=== PATIENT | male | born 1965 | race African-American/Black ===

== ENCOUNTER 2023-12-01 11:17 | Inpatient (IN) | payer OTHER ==
[2023-12-01 13:36] VITALS: BMI 23.6
[2023-12-01] MEDS ORDERED: LOPERAMIDE HCL 2 MG CAPSULE PO PRN (14:12)
[2023-12-01] MEDS ORDERED: guaiFENesin 600 MG TABLET.ER (FP) PO PRN (14:12)
[2023-12-01] MEDS ORDERED: NICOTINE POLACRILEX 2 MG LOZENGE BC PRN (14:12)
[2023-12-01] MEDS ORDERED: BENZONATATE 200 MG CAPSULE PO PRN (14:12)
[2023-12-01] MEDS ORDERED: NICOTINE POLACRILEX 2 MG GUM BUC PRN (14:12)
[2023-12-01] MEDS ORDERED: MAGNESIUM HYDROX 2400MG/30ML ORAL SUSPENSION 30 ML CUP PO PRN (14:12)
[2023-12-01] MEDS ORDERED: DOCUSATE SODIUM 100 MG CAPSULE (FP) PO PRN (14:12)
[2023-12-01] MEDS ORDERED: MAG HYDROX/AL HYDROX/SIMETH 30 ML UNIT-DOSE CUP PO PRN (14:12)
[2023-12-01] MEDS ORDERED: POLYETHYLENE GLYCOL (HEALTHYLAX) 3350 17 GM PACKET PO PRN (14:12)
[2023-12-01] MEDS ORDERED: BENZOCAINE/MENTHOL (CHLORASEPTIC ) LOZENGE MM PRN (14:12)
[2023-12-01] MEDS: BACITRACIN ZINC 15 GM TUBE TOPICAL OINTMENT TP SCH (16:38)
[2023-12-01 19:37] LABS: EPI CELLS >36 /uL (0-25.1); HYALINE CASTS 4 /uL (0-3.1); URINE APPEARANCE CLEAR; URINE BACTERIA 28 /uL (0-1359); URINE BILIRUBIN NEGATIVE (NEGATIVE); URINE COLOR YELLOW; URINE GLUCOSE (UA) NEGATIVE (NEGATIVE); URINE KETONE TRACE (NEGATIVE); URINE LEUK ESTERASE 2+ (NEGATIVE); URINE NITRITE NEGATIVE (NEGATIVE); URINE PROTEIN NEGATIVE (NEGATIVE); URINE RBC 25 /uL (0-23.9); URINE WBC 362 /uL (0-25.8)
[2023-12-01] MEDS ORDERED: BACITRACIN ZINC 15 GM TUBE TOPICAL OINTMENT TP SCH (22:00)
[2023-12-01] MEDS: MELATONIN 5 MG TABLETS PO SCH (22:32)
[2023-12-01] MEDS: THIAMINE 100 MG TABLET PO SCH (22:32)
[2023-12-01] MEDS: hydrOXYzine PAMOATE 25 MG CAPSULE (FP) PO PRN (22:32)
[2023-12-02] MEDS: PRENATAL VITAMINS W/ FOLIC ACID TABLET (FP) PO SCH (10:44)
[2023-12-02] MEDS: BACITRACIN ZINC 15 GM TUBE TOPICAL OINTMENT TP SCH (10:44)
[2023-12-02] MEDS ORDERED: BACITRACIN 0.9 GM PACKET ONE (11:22)
[2023-12-02 14:49] LABS: HEMATOCRIT 37.4 % (35.4-49); MCH 30.5 pg (25.7-33.7); MCHC 32.1 g/dl (32.0-35.9); MEAN CELL VOLUME 94.8 fl (80-96); MEAN PLT VOLUME 9.5 fl (7.5-11.1); PLATELET COUNT 236 10^3/uL (134-434); RBC 3.94 M/mm3 (4.00-5.60); RDW 14.4 % (11.9-15.9); WHITE BLOOD COUNT 7.9 K/mm3 (4.0-10.0)
[2023-12-02 15:01] LABS: POTASSIUM 4.2 mmol/L (3.5-5.1)
[2023-12-02 15:04] LABS: BLOOD UREA NITROGEN 15.6 mg/dL (7-18); CALCIUM 8.9 mg/dL (8.5-10.1)
[2023-12-02 15:05] LABS: ALBUMIN 3.3 g/dl (3.4-5.0)
[2023-12-02 15:08] LABS: CREATININE 0.8 mg/dL (0.55-1.3)
[2023-12-02 15:10] LABS: BILIRUBIN,TOTAL 0.4 mg/dL (0.2-1); TOT PROT 7.3 g/dl (6.4-8.2)
[2023-12-03] MEDS: IBUPROFEN 600 MG TABLET (FP) PO PRN (11:16)
[2023-12-04] MEDS: IBUPROFEN 400 MG TABLET (FP) PO PRN (10:14)
[2023-12-04] MEDS: TUBERCULIN PPD 5 TU/0.1ML SYRINGE (IN PATIENT USE ONLY) ID ONE (11:23)
[2023-12-04] MEDS: BACITRACIN 0.9 GM PACKET TP SCH (11:28)
[2023-12-04] MEDS: ACETAMINOPHEN 325 MG TABLET (FP) PO PRN (17:11)
[2023-12-05] MEDS: OLANZapine 10 MG TABLET PO SCH (11:47)
[2023-12-05] MEDS: DIVALPROEX SODIUM 250 MG TABLET E.C. PO SCH (12:10)
[2023-12-05] MEDS: OLANZapine 10 MG TABLET PO ONE (12:10)
[2023-12-06 06:45] VITALS: BP 146/76; PULSE 78; RESP 17; TEMP 97.1
[2023-12-06] MEDS ORDERED: NALOXONE (NYS OPIOID OVERDOSE PROGRAM) 4 MG/0.1 ML SPRAY NS PRN (11:45)
[2023-12-06] MEDS ORDERED: OLANZapine 10 MG TABLET PO SCH (22:00)
== END 2023-12-06 12:03 | disposition left against medical advice (07) | DRG 770 ==
LOC: YASAS 11:17 → Y3NR 14:30 → Y3W 12-02 09:47
PROVIDERS: ADMIT Allergy & Immunology; ATTEND Psychiatry & Neurology Pain Medicine
PROC: HZ42ZZZ Group Counseling for Substance Abuse Treatment, Cognitive-Behavioral (ICD-10-PCS; principal; 2023-12-01)
DX: F14.20 Cocaine dependence, uncomplicated (principal); F10.20 Alcohol dependence, uncomplicated; F12.20 Cannabis dependence, uncomplicated; F17.210 Nicotine dependence, cigarettes, uncomplicated; F31.81 Bipolar II disorder; F25.9 Schizoaffective disorder, unspecified; F19.24 Other psychoactive substance dependence with psychoactive substance-induced mood disorder; R26.89 Other abnormalities of gait and mobility; Z99.89 Dependence on other enabling machines and devices; Z59.02 Unsheltered homelessness; Z91.199 Patient's noncompliance with other medical treatment and regimen due to unspecified reason
CPT/HCPCS: 36415; 71045-TC-FY; 80053; 80305; 80307; 81003; 85027; 86780; 86803; 87811; 93005; 93010

== ENCOUNTER 2024-02-11 11:56 | Inpatient (IN) | payer OTHER ==
[2024-02-11 13:18] VITALS: BMI 22.6
[2024-02-11] MEDS ORDERED: NALOXONE (NARCAN) HCL 4 MG/0.1 ML SPRAY NS PRN (13:32)
[2024-02-11] MEDS ORDERED: IBUPROFEN 400 MG TABLET (FP) PO PRN (13:32)
[2024-02-11] MEDS ORDERED: IBUPROFEN 600 MG TABLET (FP) PO PRN (13:32)
[2024-02-11] MEDS ORDERED: BENZONATATE 200 MG CAPSULE PO PRN (13:32)
[2024-02-11] MEDS ORDERED: POLYETHYLENE GLYCOL (HEALTHYLAX) 3350 17 GM PACKET PO PRN (13:32)
[2024-02-11] MEDS ORDERED: hydrOXYzine PAMOATE 25 MG CAPSULE (FP) PO PRN (13:32)
[2024-02-11] MEDS ORDERED: LOPERAMIDE HCL 2 MG CAPSULE PO PRN (13:32)
[2024-02-11] MEDS ORDERED: MAGNESIUM HYDROX 2400MG/30ML ORAL SUSPENSION 30 ML CUP PO PRN (13:32)
[2024-02-11] MEDS ORDERED: guaiFENesin 600 MG TABLET.ER (FP) PO PRN (13:32)
[2024-02-11] MEDS ORDERED: BENZOCAINE/MENTHOL (CHLORASEPTIC ) LOZENGE MM PRN (13:32)
[2024-02-11] MEDS ORDERED: ACETAMINOPHEN 325 MG TABLET (FP) PO PRN (13:32)
[2024-02-11] MEDS: NICOTINE 14 MG/24 HOURS TOPICAL PATCH TD SCH (14:55)
[2024-02-11] MEDS: PRENATAL VITAMINS W/ FOLIC ACID TABLET (FP) PO SCH (14:56)
[2024-02-11] MEDS: DIVALPROEX SODIUM 500 MG TABLET E.C. PO SCH (22:22)
[2024-02-11] MEDS: OLANZapine 5 MG TABLET PO SCH (22:22)
[2024-02-11] MEDS: THIAMINE 100 MG TABLET PO SCH (22:22)
[2024-02-11] MEDS: MELATONIN 5 MG TABLETS PO SCH (22:22)
[2024-02-12 11:27] LABS: CHLORIDE 109 mmol/L (98-107); SODIUM 138 mmol/L (136-145)
[2024-02-12 11:34] LABS: HEMATOCRIT 38.7 % (35.4-49); HEMOGLOBIN 12.3 GM/dL (11.7-16.9); MCH 29.9 pg (25.7-33.7); MCHC 31.8 g/dl (32.0-35.9); MEAN CELL VOLUME 93.9 fl (80-96); MEAN PLT VOLUME 8.9 fl (7.5-11.1); PLATELET COUNT 185 10^3/uL (134-434); RBC 4.12 M/mm3 (4.00-5.60); RDW 13.4 % (11.9-15.9); WHITE BLOOD COUNT 7.7 K/mm3 (4.0-10.0)
[2024-02-12 11:35] LABS: ALBUMIN 3.2 g/dl (3.4-5.0); ANION GAP 5 mmol/L (4-13); BLOOD UREA NITROGEN 11.3 mg/dL (7-18); CALCIUM 8.8 mg/dL (8.5-10.1); CO2 24 mmol/L (21-32); GLUCOSE,RANDOM 92 mg/dL (74-106); SGOT/AST 22 U/L (15-37); SGPT/ALT 34 U/L (13-61)
[2024-02-12 11:38] LABS: ALK PHOS 128 U/L (45-117); BILIRUBIN,TOTAL 0.3 mg/dL (0.2-1); CREATININE 0.6 mg/dL (0.55-1.3); TOT PROT 6.6 g/dl (6.4-8.2)
[2024-02-12 12:13] LABS: SYPHILIS W/ RPR CONF NON-REACTIVE (NONREACTIVE)
[2024-02-14] MEDS: MAG HYDROX/AL HYDROX/SIMETH 30 ML UNIT-DOSE CUP PO PRN (22:18)
[2024-02-15 07:29] VITALS: BP 155/80; PULSE 62; RESP 16; TEMP 97.8
[2024-02-15] MEDS: NALOXONE (NYS OPIOID OVERDOSE PROGRAM) 4 MG/0.1 ML SPRAY NS SCH (11:23)
== END 2024-02-15 11:35 | disposition home or self-care (01) | DRG 772 ==
LOC: YASAS 11:56 → Y3NR 14:03 → Y5N 02-12 11:50
PROVIDERS: ADMIT Psychiatry & Neurology Pain Medicine; ATTEND Psychiatry & Neurology Pain Medicine
PROC: HZ42ZZZ Group Counseling for Substance Abuse Treatment, Cognitive-Behavioral (ICD-10-PCS; principal; 2024-02-11)
DX: F10.20 Alcohol dependence, uncomplicated (principal); F14.20 Cocaine dependence, uncomplicated; F12.20 Cannabis dependence, uncomplicated; F17.210 Nicotine dependence, cigarettes, uncomplicated; F31.89 Other bipolar disorder; F19.94 Other psychoactive substance use, unspecified with psychoactive substance-induced mood disorder; Z91.148 Patient's other noncompliance with medication regimen for other reason; Z86.11 Personal history of tuberculosis; Z59.00 Homelessness unspecified
CPT/HCPCS: 36415; 71046-TC-FY; 80053; 80307; 85027; 86780; 86803; 93005; 93010

== ENCOUNTER 2024-09-22 11:40 | Inpatient (IN) | payer OTHER ==
[2024-09-22 12:15] VITALS: BMI 20.9
[2024-09-22] MEDS ORDERED: hydrOXYzine PAMOATE 25 MG CAPSULE (FP) PO PRN (12:29)
[2024-09-22] MEDS ORDERED: IBUPROFEN 400 MG TABLET (FP) PO PRN (12:29)
[2024-09-22] MEDS ORDERED: POLYETHYLENE GLYCOL (HEALTHYLAX) 3350 17 GM PACKET PO PRN (12:29)
[2024-09-22] MEDS ORDERED: LOPERAMIDE HCL 2 MG CAPSULE PO PRN (12:29)
[2024-09-22] MEDS ORDERED: ACETAMINOPHEN 325 MG TABLET (FP) PO PRN (12:29)
[2024-09-22] MEDS ORDERED: NICOTINE POLACRILEX 2 MG GUM BUC PRN (12:29)
[2024-09-22] MEDS ORDERED: MAGNESIUM HYDROX 2400MG/30ML ORAL SUSPENSION 30 ML CUP PO PRN (12:29)
[2024-09-22] MEDS ORDERED: MAG HYDROX/AL HYDROX/SIMETH 30 ML UNIT-DOSE CUP PO PRN (12:29)
[2024-09-22] MEDS ORDERED: guaiFENesin 600 MG TABLET.ER (FP) PO PRN (12:29)
[2024-09-22] MEDS ORDERED: NALOXONE (NARCAN) HCL 4 MG/0.1 ML SPRAY NS PRN (12:29)
[2024-09-22] MEDS ORDERED: IBUPROFEN 600 MG TABLET (FP) PO PRN (12:29)
[2024-09-22] MEDS ORDERED: BENZOCAINE/MENTHOL (CHLORASEPTIC ) LOZENGE MM PRN (12:29)
[2024-09-22] MEDS ORDERED: BENZONATATE 200 MG CAPSULE PO PRN (12:29)
[2024-09-22 14:58] VITALS: RESP 18
[2024-09-22] MEDS: NALTREXONE HCL 50 MG TABLET PO ONE (15:54)
[2024-09-22] MEDS ORDERED: TUBERCULIN PPD 5 TU/0.1ML VIAL ID ONE ×2 (16:01→16:13)
[2024-09-22] MEDS: TUBERCULIN PPD 5 TU/0.1ML SYRINGE (IN PATIENT USE ONLY) ID ONE (16:10)
[2024-09-22] MEDS: THIAMINE 100 MG TABLET PO SCH (21:53)
[2024-09-22] MEDS: MELATONIN 5 MG TABLETS PO SCH (21:53)
[2024-09-22] MEDS: MIRTAZAPINE 15 MG TABLET (FP) PO SCH (21:54)
[2024-09-23 05:32] VITALS: TEMP 97.1
[2024-09-23 09:13] VITALS: BP 147/63; PULSE 89
[2024-09-23] MEDS: NICOTINE 14 MG/24 HOURS TOPICAL PATCH TD SCH (11:07)
[2024-09-23] MEDS: PRENATAL VITAMINS W/ FOLIC ACID TABLET (FP) PO SCH (11:07)
[2024-09-23] MEDS: NALTREXONE HCL 50 MG TABLET PO SCH (11:07)
[2024-09-23 11:40] LABS: MCHC 31.3 g/dl (32.3-36.5); MEAN CELL VOLUME 94.5 fl (79.0-92.2); MEAN PLT VOLUME 11.3 fl (9.4-12.4); RDW 13.8 % (12.2-16.1)
[2024-09-23 11:55] LABS: EPI CELLS 10 /uL (0-25.1); HYALINE CASTS 1 /uL (0-3.1); URINE APPEARANCE CLEAR; URINE BACTERIA 7 /uL (0-1359); URINE BILIRUBIN NEGATIVE (NEGATIVE); URINE COLOR YELLOW; URINE GLUCOSE (UA) NEGATIVE (NEGATIVE); URINE KETONE NEGATIVE (NEGATIVE); URINE LEUK ESTERASE 1+ (NEGATIVE); URINE NITRITE NEGATIVE (NEGATIVE); URINE PROTEIN NEGATIVE (NEGATIVE); URINE RBC 6 /uL (0-23.9); URINE UROBILINOGEN 0.2 mg/dL (0.2-1.0); URINE WBC 99 /uL (0-25.8)
[2024-09-23 12:24] LABS: CO2 28 mmol/L (21-32); GLUCOSE,RANDOM 114 mg/dL (74-106)
[2024-09-23 12:27] LABS: CREATININE 0.7 mg/dL (0.55-1.3); SGOT/AST 34 U/L (15-37); SGPT/ALT 48 U/L (13-61)
[2024-09-23 12:28] LABS: SYPHILIS W/ RPR CONF NON-REACTIVE (NONREACTIVE)
[2024-09-23 12:29] LABS: TOT PROT 5.6 g/dl (6.4-8.2)
[2024-09-23 12:30] LABS: ALK PHOS 103 U/L (45-117)
[2024-09-23 12:59] LABS: HCV DIAGNOSTIC IN-HOUSE W/RFLX NON-REACTIVE (NONREACTIVE)
== END 2024-09-23 14:44 | disposition left against medical advice (07) | DRG 770 ==
LOC: YASAS 11:40 → Y3W 13:47
PROVIDERS: ADMIT Family Medicine; ATTEND Psychiatry & Neurology Pain Medicine
PROC: HZ42ZZZ Group Counseling for Substance Abuse Treatment, Cognitive-Behavioral (ICD-10-PCS; principal; 2024-09-22)
DX: F14.20 Cocaine dependence, uncomplicated (principal); F12.20 Cannabis dependence, uncomplicated; F17.210 Nicotine dependence, cigarettes, uncomplicated; F25.9 Schizoaffective disorder, unspecified; F31.81 Bipolar II disorder; F19.24 Other psychoactive substance dependence with psychoactive substance-induced mood disorder; Z91.199 Patient's noncompliance with other medical treatment and regimen due to unspecified reason
CPT/HCPCS: 36415; 80053; 80305; 80307; 81003; 85027; 86780; 86803; 87811; 93005; 93010

== ENCOUNTER 2024-11-23 12:28 | Inpatient (IN) | payer OTHER ==
[2024-11-23 13:29] VITALS: BMI 20.6
[2024-11-23] MEDS ORDERED: MAGNESIUM HYDROX 2400MG/30ML ORAL SUSPENSION 30 ML CUP PO PRN (14:42)
[2024-11-23] MEDS ORDERED: guaiFENesin 600 MG TABLET.ER (FP) PO PRN (14:42)
[2024-11-23] MEDS ORDERED: LOPERAMIDE HCL 2 MG CAPSULE PO PRN (14:42)
[2024-11-23] MEDS ORDERED: POLYETHYLENE GLYCOL (HEALTHYLAX) 3350 17 GM PACKET PO PRN (14:42)
[2024-11-23] MEDS ORDERED: IBUPROFEN 600 MG TABLET (FP) PO PRN (14:42)
[2024-11-23] MEDS ORDERED: NALOXONE (NARCAN) HCL 4 MG/0.1 ML SPRAY NS PRN (14:42)
[2024-11-23] MEDS ORDERED: hydrOXYzine PAMOATE 25 MG CAPSULE (FP) PO PRN (14:42)
[2024-11-23] MEDS ORDERED: BENZOCAINE/MENTHOL (CHLORASEPTIC ) LOZENGE MM PRN (14:42)
[2024-11-23] MEDS ORDERED: MAG HYDROX/AL HYDROX/SIMETH 30 ML UNIT-DOSE CUP PO PRN (14:42)
[2024-11-23] MEDS ORDERED: IBUPROFEN 400 MG TABLET (FP) PO PRN (14:42)
[2024-11-23] MEDS ORDERED: BENZONATATE 200 MG CAPSULE PO PRN (14:42)
[2024-11-23] MEDS ORDERED: ACETAMINOPHEN 325 MG TABLET (FP) PO PRN (14:42)
[2024-11-23] MEDS: PRENATAL VITAMINS W/ FOLIC ACID TABLET (FP) PO SCH (15:46)
[2024-11-23] MEDS: MELATONIN 5 MG TABLETS PO SCH (21:40)
[2024-11-23] MEDS: MUPIROCIN 2% TOPICAL OINTMENT 22 GM TUBE TP SCH (21:40)
[2024-11-23] MEDS: MIRTAZAPINE 15 MG TABLET (FP) PO SCH (21:41)
[2024-11-23] MEDS: THIAMINE 100 MG TABLET PO SCH (21:41)
[2024-11-24] MEDS: NICOTINE 7 MG/24 HOURS TOPICAL PATCH TD SCH (09:11)
[2024-11-24] MEDS: NALTREXONE HCL 50 MG TABLET PO SCH (09:11)
[2024-11-24 12:00] LABS: MCHC 31.0 g/dl (32.3-36.5); MEAN CELL VOLUME 92.9 fl (79.0-92.2); MEAN PLT VOLUME 11.4 fl (9.4-12.4); RDW 13.5 % (12.2-16.1)
[2024-11-24 12:33] LABS: GLUCOSE,RANDOM 148 mg/dL (74-106)
[2024-11-24 12:34] LABS: TOT PROT 7.6 g/dl (6.4-8.2)
[2024-11-24 12:35] LABS: CO2 25 mmol/L (21-32)
[2024-11-24 12:36] LABS: ALK PHOS 86 U/L (40-150)
[2024-11-24 12:39] LABS: CREATININE 0.76 mg/dL (0.55-1.3); SGOT/AST 30 U/L (5-34); SGPT/ALT 30 U/L (0-55)
[2024-11-24 13:03] VITALS: BP 143/81; PULSE 80; RESP 16; TEMP 98.5
[2024-11-24 13:03] LABS: HCV DIAGNOSTIC IN-HOUSE W/RFLX NON-REACTIVE (NONREACTIVE); SYPHILIS W/ RPR CONF NON-REACTIVE (NONREACTIVE)
== END 2024-11-24 13:02 | disposition left against medical advice (07) | DRG 772 ==
LOC: YASAS 12:28 → Y3NR 15:18 → Y5N 11-24 12:18
PROVIDERS: ADMIT Family Medicine; ATTEND Psychiatry & Neurology Pain Medicine
PROC: HZ42ZZZ Group Counseling for Substance Abuse Treatment, Cognitive-Behavioral (ICD-10-PCS; principal; 2024-11-23)
DX: F14.20 Cocaine dependence, uncomplicated (principal); F12.20 Cannabis dependence, uncomplicated; F17.290 Nicotine dependence, other tobacco product, uncomplicated; F25.9 Schizoaffective disorder, unspecified; F19.24 Other psychoactive substance dependence with psychoactive substance-induced mood disorder; G47.00 Insomnia, unspecified; F91.8 Other conduct disorders; I69.851 Hemiplegia and hemiparesis following other cerebrovascular disease affecting right dominant side; Z91.199 Patient's noncompliance with other medical treatment and regimen due to unspecified reason; Z86.11 Personal history of tuberculosis
CPT/HCPCS: 36415; 80053; 80307; 85027; 86780; 86803